=== PATIENT | male | born 1985 | race Caucasian/White ===

== ENCOUNTER 2017-02-22 09:52 | Emergency (ER) | payer OTHER ==
[~2017-02-22] VITALS: Ht 182.9 cm; Wt 79.0 kg
[2017-02-22 10:02] VITALS: Ht 182.9 cm; Wt 79.0 kg
[2017-02-22] MEDS ORDERED: morphine 4 MG/ML VIAL IM STA (10:31)
[2017-02-22 11:17] LABS: BASOPHILS % 0.3 % (0.0-2.0); EOSINOPHILS # 0.1 10^3/ul (0.0-0.5); EOSINOPHILS % 0.9 % (0.0-7.0); HEMATOCRIT 40.8 % (42.0-52.0); HEMOGLOBIN 14.5 g/dl (14.0-18.0); LYMPHOCYTES # 1.7 10^3/ul (0.8-2.9); LYMPHOCYTES % 28.8 % (15.0-51.0); MEAN CORPUSCULAR HEMOGLOBIN 31.2 pg (29.0-33.0); MEAN CORPUSCULAR HGB CONC 35.5 g/dl (32.0-37.0); MEAN CORPUSCULAR VOLUME 87.7 fl (82.0-101.0); MEAN PLATELET VOLUME 9.2 fl (7.4-10.4); MONOCYTE # 0.5 10^3/ul (0.3-0.9); MONOCYTES % 8.1 % (0.0-11.0); NEUTROPHIL # 3.6 10^3/ul (1.6-7.5); NEUTROPHILS % 61.7 % (39.0-77.0); PLATELET COUNT 207 10^3/UL (140-415); RED BLOOD COUNT 4.65 10^6/ul (4.70-6.10); RED CELL DISTRIBUTION WIDTH 12.6 % (11.5-14.5); WHITE BLOOD COUNT 5.8 10^3/ul (4.8-10.8)
[2017-02-22 11:40] LABS: ALBUMIN 4.8 g/dl (3.3-4.9); ALBUMIN/GLOBULIN RATIO 1.41; BILIRUBIN,INDIRECT 0.5 mg/dl (0-1.1); BILIRUBIN,TOTAL 0.5 mg/dl (0.2-1.3); CALCIUM 9.2 mg/dl (8.4-10.2); CREATININE 0.98 mg/dl (0.61-1.24); POTASSIUM 4.6 mmol/L (3.5-5.1); TOTAL PROTEIN 8.2 g/dl (6.1-8.1)
[2017-02-22 11:42] LABS: ADD UMIC NO; UR ASCORBIC ACID NEGATIVE (NEGATIVE); UR BILIRUBIN (Dip) NEGATIVE (NEGATIVE); UR BLOOD (Dip) NEGATIVE (NEGATIVE); UR CLARITY CLEAR (CLEAR); UR COLOR YELLOW (YELLOW); UR GLUCOSE (Dip) NEGATIVE (NEGATIVE); UR KETONES (Dip) NEGATIVE (NEGATIVE); UR LEUKOCYTE ESTERASE (Dip) NEGATIVE Leu/ul (NEGATIVE); UR NITRITE (Dip) NEGATIVE (NEGATIVE); UR SPECIFIC GRAVITY (Dip) 1.017 (1.003-1.030); UR TOTAL PROTEIN (Dip) NEGATIVE (NEGATIVE); UR UROBILINOGEN (Dip) NEGATIVE (NEGATIVE)
[2017-02-22] MEDS ORDERED: ONDANSETRON 4 MG INJ IV STA (11:44)
--- NOTE | 2017-02-22 11:44 | ERD ---
ER Documentation Chief Complaint Chief Complaint RT LOWER INGUINAL PAIN, UNABLE TO URINATE OR HAVE BM X2 DAYS HPI 31-year-old male presenting with a chief complaints of right lower quadrant abdominal pain. Patient was diagnosed with inguinal hernia and hemorrhoids. Patient states that he has not been able to have a bowel movement 3 days. Urination has been more difficult. Denies dysuria, polyuria, hematuria, bright red blood per rectum, melena, nausea, vomiting. States the pain is around the area of the hernia. Unable to reduce the hernia by himself. Has not taken any medications to relieve the symptoms. Patient has no other complaints and describes no other associated manifestations. Nursing notes have been reviewed and are consistent with history given. ROS All systems reviewed and are negative except as per history of present illness. PMhx/Soc History of Surgery: No Anesthesia Reaction: No Hx Neurological Disorder: No Hx Respiratory Disorders: No Hx Cardiac Disorders: No Hx Psychiatric Problems: No Hx Miscellaneous Medical Probl: No Hx Alcohol Use: No Hx Substance Use: No Hx Tobacco Use: No Smoking Status: Never smoker Physical Exam Vitals Vital Signs Date Time Temp Pulse Resp B/P Pulse Ox O2 Delivery O2 Flow Rate FiO2 02/22/17 10:02 98.3 70 16 105/60 99 Physical Exam Const: Well-appearing 31-year-old male in mild distress Head: Atraumatic Eyes: Normal Conjunctiva ENT: Normal External Ears, Nose and Mouth. Neck: Full range of motion..~ No meningismus. Resp: Clear to auscultation bilaterally Cardio: Regular rate and rhythm, no murmurs Abd: Tender in the right lower quadrant. Mass palpated. Most consistent with hernia. Skin: No petechiae or rashes Back: No CVA tenderness Ext: No cyanosis, or edema Neur: Awake and alert Psych: Normal Mood and Affect Result Diagram: 02/22/17 1108 02/22/17 1108 Results 24 hrs Laboratory Tests Test 02/22/17 11:08 02/22/17 11:15 White Blood Count 5.810^3/ul Red Blood Count 4.6510^6/ul Hemoglobin 14.5g/dl Hematocrit 40.8% Mean Corpuscular Volume 87.7fl Mean Corpuscular Hemoglobin 31.2pg Mean Corpuscular Hemoglobin Concent 35.5g/dl Red Cell Distribution Width 12.6% Platelet Count 73491^3/UL Mean Platelet Volume 9.2fl Neutrophils % 61.7% Lymphocytes % 28.8% Monocytes % 8.1% Eosinophils % 0.9% Basophils % 0.3% Nucleated Red Blood Cells % 0.0/100WBC Neutrophils # 3.610^3/ul Lymphocytes # 1.710^3/ul Monocytes # 0.510^3/ul Eosinophils # 0.110^3/ul Basophils # 0.010^3/ul Nucleated Red Blood Cells # 0.010^3/ul Sodium Level 142mmol/L Potassium Level 4.6mmol/L Chloride Level 106mmol/L Carbon Dioxide Level 27mmol/L Anion Gap 14 Blood Urea Nitrogen 12mg/dl Creatinine 0.98mg/dl Glucose Level 95mg/dl Calcium Level 9.2mg/dl Total Bilirubin 0.5mg/dl Direct Bilirubin 0.00mg/dl Indirect Bilirubin 0.5mg/dl Aspartate Amino Transf (AST/SGOT) 26IU/L Alanine Aminotransferase (ALT/SGPT) 35IU/L Alkaline Phosphatase 54IU/L Total Protein 8.2g/dl Albumin 4.8g/dl Globulin 3.40g/dl Albumin/Globulin Ratio 1.41 Lipase 33U/L Urine Color YELLOW Urine Clarity CLEAR Urine pH 6.0 Urine Specific [place] 1.017 Urine Ketones NEGATIVEmg/dL Urine Nitrite NEGATIVEmg/dL Urine Bilirubin NEGATIVEmg/dL Urine Urobilinogen NEGATIVEmg/dL Urine Leukocyte Esterase NEGATIVELeu/ul Urine Hemoglobin NEGATIVEmg/dL Urine Glucose NEGATIVEmg/dL Urine Total Protein NEGATIVEmg/dl Current Medications Medications (Trade) Dose Ordered Sig/Prateek Route PRN Reason Start Time Stop Time Status Last Admin Dose Admin Morphine Sulfate (morphine) 4 mg ONCE STAT IM 02/22/17 10:31 02/22/17 10:36 DC 02/22/17 10:43 Ondansetron HCl 4 mg 4 mg ONCE STAT IV 02/22/17 11:44 02/22/17 11:45 DC 02/22/17 11:53 Sodium Chloride (NS) 100 ml @ ud STK-MED ONCE .ROUTE 02/22/17 12:05 02/22/17 12:06 DC 02/22/17 12:24 Iohexol (Omnipaque 300mg/ ml) 150 ml STK-MED ONCE .ROUTE 02/22/17 12:05 02/22/17 12:06 DC 02/22/17 12:24 Procedures/MDM 31-year-old male presenting with the chief complaints of a hernia that is unable to be reduced. No bowel movement 3 days. Patient was medicated with 4 mg IV morphine and 4 mg IV Zofran. Hernia was unsuccessfully reduced. Labs were obtained prior to CT with contrast. CT with contrast of the abdomen and pelvis was read by the radiologist given the following impression: Negative. Reevaluation of the patient revealed improvement in discomfort and reduced hernia. States hernia comes out every single day. We will give a list for general surgery. I have no suspicion for neurovascular compromise, ischemic bowel, mechanical obstruction at this time. Most likely diagnosis is right inguinal hernia that is reducible. I have spoke with the patient regarding their condition and future management. They have verbally responded that they understand their status and treatment plan. The patients vitals are stable, and their current condition is appropriate for discharge. The patient will be given discharge instructions with return precautions. Departure Diagnosis: Primary Impression: Inguinal hernia Obstruction and gangrene presence: without obstruction or gangrene Laterality : unilateral Recurrence: recurrent Qualified Code: K40.91 - Unilateral recurrent inguinal hernia without obstruction or gangrene Condition: Stable Additional Instructions: Follow up with your PCP within the next 1-3 days for a more thorough evaluation and a possible referral to a specialist. Return the the emergency department immediately if symptoms worsen or change. If you have any questions regarding medications, ask your pharmacist or us before you leave. If any adverse reactions occur while taking your medications, discontinue the treatment and return to the emergency department immediately. Take your medications as directed, and complete the entire course of treatment. SILVIA PAZ PA-C Feb 22, 2017 11:44
[2017-02-22] MEDS ORDERED: SOD CHLORIDE 0.9% 100 ML ONE (12:05)
[2017-02-22] MEDS ORDERED: IOHEXOL 300MG/ML 150 ML BTL ONE (12:05)
--- NOTE | 2017-02-22 15:35 | RADRPT ---
PROCEDURE: CT Abdomen and Pelvis with contrast. CLINICAL INDICATION: Abdomen and pelvis pain. History of right inguinal hernia. TECHNIQUE: CT scan of the abdomen and pelvis with contrast was performed. The patient was scanned following the uncomplicated intravenous administration of 90 cc of Omnipaque-300. Coronal and sagit sachin reformatted images were obtained from the axial source images. Images were reviewed on a [employer] PACS workstation. Total exam DLP is 581.68 mGy-cm. CTDIvol is 10.13 mGy. One or more of the following dose reduction techniques were used: Automated exposure control, adjustment of the mA and/or kV according to patient size, use of iterative reconstruction technique. COMPARISON: None. FINDINGS: The lung bases are normal. There is no pleural effusion. The liver is normal in size and attenuation. There is no focal hepatic lesion. The gallbladder and bile ducts are normal. The spleen is normal in size. There is no focal splenic lesion. Both adrenals are normal with no enlargement or mass. The pancreas is unremarkable with no mass or evidence of pancreatitis. Both kidneys demonstrate normal contrast enhancement. There is no renal mass or hydronephrosis. The abdominal aorta is not dilated. There is no retroperitoneal lymphadenopathy or mass. There is no pelvic lymphadenopathy or mass. The bladder and distal ureters are normal. The periappendiceal region is unremarkable with no evidence of appendicitis. The appendix is well se en and appears normal. The bowel and mesentery are normal. There is no free fluid or free gas. The osseous structures are unremarkable with no fracture or lytic lesion. IMPRESSION: 1. Unremarkable CT scan of the abdomen and pelvis. RPTAT: QQ .Khris Ham MD, Date Time Electronically viewed and signed by .Khris Ham MD, MD on 02/22/2017 15:34 .R/
== END 2017-02-22 13:54 | disposition home or self-care (01) ==
LOC: FTE 09:52
DX: K40.91 Unilateral inguinal hernia, without obstruction or gangrene, recurrent (principal)
CPT/HCPCS: 36415; 74177; 80053; 81003; 83690; 85025; 96372; 96374; J2270; J2405; Q9967; Z7502; Z7610

== ENCOUNTER 2017-04-06 07:13 | Day surgery (SDC) | payer OTHER ==
[2017-04-06] VITALS (12 sets, daily range): BP systolic 106–113; BP diastolic 59–66; PULSE 46–68; RESP 14–21; Ht 182.9 cm; Wt 80.0 kg
[~2017-04-06] VITALS: Ht 182.9 cm; Wt 80.0 kg
[2017-04-06 08:29] LABS: BASOPHILS % 0.4 % (0.0-2.0); EOSINOPHILS # 0.1 10^3/ul (0.0-0.5); EOSINOPHILS % 2.1 % (0.0-7.0); HEMATOCRIT 43.1 % (42.0-52.0); LYMPHOCYTES # 2.1 10^3/ul (0.8-2.9); LYMPHOCYTES % 43.9 % (15.0-51.0); MEAN CORPUSCULAR HGB CONC 34.8 g/dl (32.0-37.0); MEAN PLATELET VOLUME 9.5 fl (7.4-10.4); MONOCYTE # 0.4 10^3/ul (0.3-0.9); NEUTROPHIL # 2.1 10^3/ul (1.6-7.5); NEUTROPHILS % 44.4 % (39.0-77.0); PLATELET COUNT 217 10^3/UL (140-415); RED BLOOD COUNT 4.84 10^6/ul (4.70-6.10); RED CELL DISTRIBUTION WIDTH 12.5 % (11.5-14.5); WHITE BLOOD COUNT 4.8 10^3/ul (4.8-10.8)
[2017-04-06 08:56] LABS: ALBUMIN 4.2 g/dl (3.3-4.9); ALBUMIN/GLOBULIN RATIO 1.23; BILIRUBIN,INDIRECT 0.5 mg/dl (0-1.1); BILIRUBIN,TOTAL 0.5 mg/dl (0.2-1.3); INR 0.99; PROTIME 13.2 Sec (11.9-14.9); TOTAL PROTEIN 7.6 g/dl (6.1-8.1)
[2017-04-06 08:57] LABS: PARTIAL THROMBOPLASTIN TIME 33.8 Sec (25.0-35.0)
[2017-04-06 09:00] LABS: CALCIUM 9.4 mg/dl (8.4-10.2); CREATININE 0.88 mg/dl (0.61-1.24); POTASSIUM 3.8 mmol/L (3.5-5.1)
[2017-04-06] MEDS ORDERED: BUPIVACAINE 0.25% (MPF) 30 ML INJ ONE (09:38)
[2017-04-06] MEDS ORDERED: POLYMYXIN/BACITRACIN 1L IRRIG ONE (09:39)
[2017-04-06] MEDS ORDERED: METOCLOPRAMIDE 10 MG INJ ONE (09:59)
[2017-04-06] MEDS ORDERED: ROPIVACAINE 0.2% 20 ML VIAL ONE (09:59)
[2017-04-06] MEDS ORDERED: MIDAZOLAM 1 MG/ML 2 ML INJ ONE (10:00)
[2017-04-06] MEDS ORDERED: PROPOFOL 20 ML ONE (10:03)
[2017-04-06] MEDS ORDERED: ROCURONIUM 50 MG INJ ONE (10:03)
[2017-04-06] MEDS ORDERED: CEFAZOLIN 1 GM INJ ONE (10:03)
[2017-04-06] MEDS ORDERED: NEOSTIGMINE 3 MG/3 ML SYRINGE ONE (10:17)
[2017-04-06] MEDS ORDERED: ONDANSETRON 4 MG INJ ONE (10:17)
[2017-04-06] MEDS ORDERED: GLYCOPYRROLATE 0.4 MG INJ ONE (10:17)
[2017-04-06] MEDS ORDERED: LIDOCAINE 2% (SDV) 5 ML INJ ONE (10:49)
[2017-04-06] MEDS ORDERED: KETOROLAC 30 MG INJ ONE (10:51)
[2017-04-06] MEDS ORDERED: EPHEDrine SULFATE 50 MG/5 ML SYG ONE (10:54)
--- NOTE | 2017-04-06 10:59 | OPR ---
Date/Time of Note Date/Time of Note DATE: 04/06/17 TIME: 10:56 Operative Report Procedure Date: Apr 06, 2017 Preoperative Diagnosis right inguinal hernia Postoperative Diagnosis same Operation/Procedure Performed 1. open incarcerated right inguinal hernia repair with medium ultrapro hernia system mesh 2. therapeutic injection of subcutaneous local anesthesia Surgeon see signature line On Site [employer] Technician none Anesthesia Type: general Estimated Blood Loss: 10 - 50 ml's Transfusion none Specimen none Grafts/Implants none Complications none Pt Condition Post Procedure: stable Indications This is a 31-year-old male with a right inguinal hernia. He requests surgical repair. Risks alternatives benefits and percent were discussed the patient. Patient expressed understanding consents to the operation. Procedure Description Patient is taken to the OR and prepped and draped in usual sterile fashion. Surgical timeout was performed. IV antibiotics given. Right inguinal oblique incision was made with a 10 blade. Dissection Carrs carried onto the extremity fascia which was opened with a 15 blade. This incision is extended medially inferiorly lateral superiorly with Metzenbaum scissors. Cord structures identified and encircled with a Bardwell drain. Indirect hernia that is incarcerated in the indirect space is reduced manually. The hernia sac is then identified and suture ligated with 3-0 Vicryl suture and the excess hernia sac was excised and discarded. The distal portion of the ultrapure hernia system mesh was then secured in the indirect space by securing to the inguinal ligament for the pubic tubercle along the shelving edge of the inguinal ligament with a 0 Prolene. The disc is secured to intra-oblique with interrupted 3-0 Vicryl. Onlay mesh is secured in a similar fashion with a running 0 Prolene from the pubic tubercle along the shelving edge of inguinal ligament. The onlay mesh is secured to the intra-bleed with interrupted 3-0 Vicryl. Structure creating reapproximated around the cord structures to re- create the inguinal ring with interrupted 0 Prolene. Externally fascia is closed with running 3-0 Vicryl. Frantz's fascia was closed with interrupted 3- 0 Vicryl. Skin is closed with absorbable's skin staplers. Therapeutic subcutaneous local anesthesia was injected throughout the incision site. Dressings were applied. Tawana JAMES Apr 06, 2017 10:59
[2017-04-06] MEDS ORDERED: DIPHENHYDRAMINE 50 MG INJ IV PRN (11:00)
[2017-04-06] MEDS ORDERED: EPHEDrine SULFATE 50 MG/5 ML SYG IV PRN (11:00)
[2017-04-06] MEDS ORDERED: HYDROCODONE/APAP (5/325) TAB PO ONE (11:00)
[2017-04-06] MEDS ORDERED: HYDROmorphONE (0.2 MG/ML) 10ML SYG IV PRN ×3 (11:00)
[2017-04-06] MEDS ORDERED: OXYCODONE/ACETAMINOPHEN (5/325) TAB PO PRN ×2 (11:00)
[2017-04-06] MEDS ORDERED: ONDANSETRON 4 MG INJ IV PRN (11:00)
[2017-04-06] MEDS ORDERED: MEPERIDINE 25 MG INJ IV PRN (11:00)
[2017-04-06] MEDS ORDERED: SOD CHLORIDE 0.9% 1,000 ML IV SCH (12:30)
[2017-04-06] MEDS ORDERED: CEFAZOLIN 2 GM/50 ML (PMX) 50 ML IVPB SCH (12:30)
== END 2017-04-06 12:50 | disposition home or self-care (01) ==
LOC: SDS 07:13
PROVIDERS: ATTEND Surgery
DX: K40.30 Unilateral inguinal hernia, with obstruction, without gangrene, not specified as recurrent (principal)
CPT/HCPCS: 49505; 80053; 85025; 85610; 85730; C1781; J0690; J1885; J2175; J2250; J2405; J2710; J2765; J2795; Z7512; Z7610

== ENCOUNTER 2017-05-17 00:33 | Emergency (ER) | END 2017-05-17 03:01 | disposition left against medical advice (07) ==

== ENCOUNTER 2017-05-17 04:10 | Emergency (ER) | END 2017-05-17 09:48 | disposition home or self-care (01) ==